=== PATIENT | male | born 1980 | race Caucasian/White ===

== ENCOUNTER 2023-12-01 18:55 | Emergency (ER) | payer OTHER, SELFPAY ==
[2023-12-01 19:16] VITALS: BP 129/75; PULSE 68; RESP 16; TEMP 36.6; O2SAT 97
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
== END 2023-12-01 19:36 | disposition home or self-care (01) ==
PROVIDERS: Emergency Provider Nurse Practitioner Family
DX: M54.9 Dorsalgia, unspecified (principal)
CPT/HCPCS: 99202; G0463

== ENCOUNTER 2024-01-19 18:57 | Emergency (ER) | payer OTHER, SELFPAY ==
--- NOTE | 2024-01-19 19:15 | ED.URI ---
HPI - URI/Sore Throat General Chief Complaint: Nausea/Vomiting/Diarrhea Stated Complaint: fever and vomiting Time Seen by Provider: 01/19/24 19:15 Source: patient, RN notes reviewed and old records reviewed Mode of arrival: ambulatory Limitations: no limitations History of Present Illness HPI Narrative: 44-year-old male to Express Care for complaint of subjective fever, excessive sweating, vomiting, dyspnea, decreased urination, weakness, absent appetite starting Wednesday evening and continuing through last night. Patient states that during that time he went over 24 hours without urinating. Patient states that his urine was very dark and that is just now starting to lighten up this evening. Patient reports that he was able to eat today for the 1st time in several days. Patient states that he has been drinking propel nonstop today in an effort to rehydrate. Patient reports that he did not come in sooner because he was not physically able to. Patient states that he smoked a lot of marijuana today in an effort to help control his nausea. Patient denies dizziness, weakness, fatigue, abdominal pain, nausea, vomiting, diarrhea, shortness of breath, difficulty swallowing. Patient tachycardic in triage. Patient resting comfortably in exam room in no acute distress. Respirations even and nonlabored. Patient able to speak in complete sentences without difficulty. Patient tolerating fluids by mouth. Related Data Home Medications Medication Instructions Recorded Confirmed buprenorphine 8 mg-naloxone 2 mg 1 film sublingual TID 12/01/23 01/19/24 sublingual film sertraline 100 mg tablet 200 mg PO DAILY 12/01/23 01/19/24 Allergies Allergy/AdvReac Type Severity Reaction Status Date / Time No Known Allergies Allergy Verified 01/19/24 19:21 Review of Systems Review of Systems: All systems reviewed & are unremarkable except as noted in HPI and below Constitutional: Constitutional: Reports as per HPI, Reports excessive sweating, Reports fatigue, Reports fever(s), Reports lethargy, Reports poor appetite, Reports weakness and Reports weight loss Comments: Patient reports that all of these symptoms resolved as of last night that he wanted to be seen as a precaution Eyes: Eyes: Reports no additional eye complaints ENT: Reports system reviewed and no additional complaints, except as documented Cardiovascular: Cardiovascular: Reports no additional cardiovascular complaints, Denies chest pain and Denies dyspnea Respiratory: Respiratory: Reports no additional respiratory complaints, Denies cough and Denies dyspnea Gastrointestinal: Gastrointestinal: Reports as per HPI, Reports diarrhea, Reports nausea and Reports vomiting Comments: Patient reports that all of these symptoms resolved as of last night that he wanted to be seen as a precaution Genitourinary: Genitourinary: Reports as per HPI and Reports oliguria Comments: Patient reports that this resolved as of today Musculoskeletal: Musculoskeletal: Reports no additional musculoskeletal complaints Neurologic: Reports system reviewed and no additional complaints, except as documented Psychiatric: Psychiatric: Reports no additional psychiatric complaints PMFSH Comments At the time of my signature, I reviewed and agree with the nursing past medical, surgical, social, and family history. There is no relevant family history pertinent to the patient complaint. Exam Const: General: cooperative, comfortable, no acute distress, well developed, alert, ill appearing acutely, tired appearing, well groomed and well nourished Nutritional Appearance: well nourished Orientation/consciousness: patient oriented x3 Limitations: no limitations HENMT: Head: normal to inspection Ears: external ears normal Face/Nose/Sinus: Normal external nose present, Normal nares present, normal facial exam, No erythema and No edema Face and sinus: normal facial exam, no erythema and no edema Mo
[2024-01-19 19:18] VITALS: BP 101/68; PULSE 116; RESP 18; TEMP 37.1; O2SAT 98
== END 2024-01-19 19:38 | disposition short-term general hospital (02) ==
LOC: EXPTROY 18:59
PROVIDERS: Emergency Provider Nurse Practitioner Family
DX: E86.0 Dehydration (principal)
CPT/HCPCS: 99212; 99213; G0463

== ENCOUNTER 2024-01-19 20:19 | Emergency (ER) | payer OTHER, SELFPAY ==
[2024-01-19 20:37] VITALS: BP 126/94; PULSE 96; RESP 15; TEMP 36.7; O2SAT 99
[2024-01-19 21:10] LABS: Basophils Absolute Auto 0.1 K/mm3 (0.0-0.1); Basophils Percent Auto 0.5 % (0.2-1.2); Eosinophils Absolute Auto 0.8 K/mm3 (0-0.3); Eosinophils Percent Auto 7.7 % (0-4.4); Hematocrit 45.6 % (42.0-52.0); Hemoglobin 15.2 g/dL (14.0-18.0); Immature Granulocyte Absolute 0.07 K/mm3 (0.00-0.031); Immature Granulocyte Percent A 0.7 % (0-0.5); Lymphocytes Absolute Auto 2.41 K/mm3 (0.9-3.2); Lymphocytes Percent Auto 23.6 % (18.3-44.2); Mean Corpuscular HGB Conc 33.3 g/dl (32-36); Mean Corpuscular Hemoglobin 30.2 pg (26-34); Mean Corpuscular Volume 90.5 fl (80-100); Monocytes Absolute Auto 0.5 K/mm3 (0.1-0.6); Monocytes Percent Auto 4.9 % (2.6-8.5); Neutrophils Absolute Auto 6.4 K/mm3 (1.3-6.7); Neutrophils Percent Auto 62.6 % (45.5-73.1); Platelet Count Result 327 k/mm3 (150-375); Red Blood Count 5.04 M/mm3 (4.6-6.20); Red Cell Distribution Width 14.7 % (11.5-14.5); White Blood Count 10.2 K/mm3 (4.5-10.0)
[2024-01-19 21:25] LABS: Alanine Aminotransferase 16 U/L (6-50); Albumin Level 4.2 g/dL (3.5-5.1); Alkaline Phosphatase 50 U/L (38-126); Anion Gap 8 mmol/L (4-12); Aspartate Amino Transferase 21 U/L (17-59); Bilirubin,Total 0.3 mg/dL (0.2-1.3); Blood Urea Nitrogen 17 mg/dL (9-20); Calcium 9.3 mg/dL (8.4-10.2); Carbon Dioxide 29 mmol/L (22-30); Chloride 102 mmol/L (98-107); Estimated CRCL calculation 110 ml/min; Estimated Glomerular Filt Rate > 60; Glucose 121 mg/dL (65-110); Lipase 144 U/L (23-300); Potassium 3.3 mmol/L (3.4-5.0); Sodium 139 mmol/L (137-145)
[2024-01-19] MEDS: SODIUM CHLORIDE 0.9% IV 1,000 ML 999 ML IV CONT ×2 (22:58)
[2024-01-19 23:23] LABS: Add Urine Microscopic? YES; Appearance Urine Clear (Clear); Bacteria Urine None Seen /hpf; Bilirubin Urine Negative (Negative); Blood Urine 3+ (Negative); Color Urine Yellow (Yellow); Glucose Urine UA Negative (Negative); Ketones Urine Negative (Negative); Leukocyte Esterase Ur Negative LEU/UL (Negative); Nitrate Urine Negative (Negative); Non Pathogenic Casts 0-2; Protein Urine Negative (Negative); RBC Urine 0-2 /hpf (0-2); Specific Grav Ur 1.021 (1.001-1.035); Squamous Epithelial Cell Urine None Seen /hpf (Few); WBC Urine 0-5 /hpf (0-3); pH Urine 5.5 (5.0-9.0)
[2024-01-19 23:45] LABS: Influenza A QL RT-PCR Negative (Negative); Influenza B QL RT-PCR Negative (Negative); RSV RNA, RT-PCR Negative (Negative); SARS-CoV-2 RNA PCR Negative (Negative)
--- NOTE | 2024-01-19 23:51 | ED.GENADULT ---
HPI - General Adult General Chief complaint: Nausea/Vomiting/Diarrhea Stated complaint: fever, N/v since wednesday Time Seen by Provider: 01/19/24 22:26 History of Present Illness HPI narrative: Patient is a 41-year-old gentleman presents emergency department with chief complaint of nausea vomiting diarrhea that started on Wednesday morning. Patient states he had symptoms for about 36 hours reports that he had multiple episodes of vomiting and multiple episodes of diarrhea patient states that went to urgent care and they recommended he come to the emergency department patient states he is now able take p.o. and reports his diarrhea. Patient denies abdominal pain. Related Data Home Medications Medication Instructions Recorded Confirmed buprenorphine 8 mg-naloxone 2 mg 1 film sublingual TID 12/01/23 01/19/24 sublingual film sertraline 100 mg tablet 200 mg PO DAILY 12/01/23 01/19/24 Allergies Allergy/AdvReac Type Severity Reaction Status Date / Time No Known Allergies Allergy Verified 01/19/24 20:21 Review of Systems Review of Systems: A 10 system review of systems was completed on the patient and is negative except for what is stated in the HPI. Nursing and ancillary documentation was reviewed. Exam Narrative: GENERAL: Well-appearing, well-nourished, and in no acute distress. HEAD: Normocephalic, atraumatic. EYES: PERRLA and EOMI. ENT: Nares clear, no rhinorrhea or epistaxis. Mucous membranes moist. NECK: Supple. CHEST: Clear to auscultation. No respiratory distress. HEART: Regular rate and rhythm. No murmur heard. Normal peripheral pulses. ABDOMEN: Soft, nontender, nondistended, normal active bowel sounds. EXTREMITIES: Normal range of motion. No edema. SKIN: Warm, dry, no rash. NEURO: No focal deficits. Alert and oriented x3. PSYCH: Normal mood and affect. Course Vital Signs Vital signs: Vital Signs Temperature 36.7 C 01/19/24 20:37 Pulse Rate 96 01/19/24 20:37 Respiratory Rate 15 01/19/24 20:37 Blood Pressure 126/94 H 01/19/24 20:37 Pulse Oximetry 99 01/19/24 20:37 Oxygen Delivery Room Air 01/19/24 20:37 Temperature 36.7 C 01/19/24 20:37 Pulse Rate 96 01/19/24 20:37 Respiratory Rate 15 01/19/24 20:37 Blood Pressure 126/94 H 01/19/24 20:37 Pulse Oximetry 99 01/19/24 20:37 Oxygen Delivery Room Air 01/19/24 20:37 Medical Decision Making MDM Narrative Medical decision making narrative: Differential diagnosis includes gastroenteritis, dehydration, viral illness Patient reports that he would like to be tested for COVID flu and RSV. Swab was obtained that tested negative. CBC and CMP were obtained as well as urinalysis that showed no significant abnormalities Patient received 2 L of normal saline boluses and is feeling much better and would like to go home. Vital Signs Vital Signs: Vital Signs Temperature 36.7 C 01/19/24 20:37 Pulse Rate 96 01/19/24 20:37 Respiratory Rate 15 01/19/24 20:37 Blood Pressure 126/94 H 01/19/24 20:37 Pulse Oximetry 99 01/19/24 20:37 Oxygen Delivery Room Air 01/19/24 20:37 Temperature 36.7 C 01/19/24 20:37 Pulse Rate 96 01/19/24 20:37 Respiratory Rate 15 01/19/24 20:37 Blood Pressure 126/94 H 01/19/24 20:37 Pulse Oximetry 99 01/19/24 20:37 Oxygen Delivery Room Air 01/19/24 20:37 Lab Data 01/19/24 20:58 01/19/24 20:58 Labs: Lab Results 01/19/24 01/19/24 01/19/24 Range/Units 20:58 23:00 23:01 WBC 10.2 H (4.5-10.0) K/mm3 RBC 5.04 (4.6-6.20) M/mm3 Hgb 15.2 (14.0-18.0) g/dL Hct 45.6 (42.0-52.0) % MCV 90.5 (80-100) fl MCH 30.2 (26-34) pg MCHC 33.3 (32-36) g/dl RDW 14.7 H (11.5-14.5) % Plt Count 327 (150-375) k/mm3 MPV 9.0 (7.4-10.4) fl Immature Gran % (Auto) 0.7 H (0-0.5) % Neut % (Auto) 62.6 (45.5-73.1) % Lymph % (Auto) 23.6 (18.3-44.2) % [place] % (Auto) 4.9
[2024-01-20 00:40] VITALS: BP 138/86; PULSE 76; RESP 15; O2SAT 99
== END 2024-01-20 00:42 | disposition home or self-care (01) ==
PROVIDERS: Emergency Provider Emergency Medicine
DX: K52.9 Noninfective gastroenteritis and colitis, unspecified (principal); Z20.822 Contact with and (suspected) exposure to COVID-19; F41.9 Anxiety disorder, unspecified; F32.A Depression, unspecified; Z79.899 Other long term (current) drug therapy
CPT/HCPCS: 36415; 80053; 81001; 83690; 85025; 87637; 96360; 99283; J7030

== ENCOUNTER 2024-08-28 08:34 | Emergency (ER) | payer OTHER, SELFPAY ==
--- NOTE | ~2024-08-28 | XR_ITS ---
EXAMINATION: XR chest 2V DATE: 08/28/2024 09:12 INDICATION: Shortness of breath, cough, wheezing and fever TECHNIQUE: PA and lateral views of the chest were obtained. COMPARISON: None FINDINGS: Left perihilar bronchial wall thickening. No focal airspace consolidation, pleural effusion or pneumo thorax. Calcified nodules in the left upper lung zone and calcified left hilar and mediastinal lymph nodes consistent with old granulomatous disease. The cardiomediastinal silhouette is normal. Visualiz ed bones and soft tissues are unremarkable. IMPRESSION: 1. Left perihilar bronchial wall thickening without focal airspace consolidation which could represen t bronchitis with differential including reactive airway disease/asthma. Reviewed, dictated and finalized at location A. IMPRESSION: 1. Left perihilar bronchial wall thickening without focal airspace consolidatio n which could represent bronchitis with differential including reactive airway disease/asthma.
--- OUTSIDE RECORDS SUMMARY | 2024-08-28 08:43 | XMS_ITS | Encounter Summary ---
Author Organization [facility] Address [address] [place] [id number] Care Team Providers Care Behavioral Health Tech Name Role Phone Jennifer Schulte MD Primary Care Provider [phone] Encounter Details Date Type Department Care Team (Late st Contact Info) Description 12/11/2010 Abstract [facility] Conversion Md, Generic Conversion, Social History Tobacco Use Types Packs/Day Years Used Date Smoking Tobacco: Never Assessed Sex and Gender Information Value Date Recorded Sex Assigned at Male 04/21/2021 3:41 PM [employer] Legal Sex Male 4:59 PM CDT Gender Identity Male 04/21/2021 3:41 PM [employer] Sexual Orientation Straight 04/21/2021 3: 41 PM [employer] documented as of this encounter Plan of Treatment Not on file documented as of this encounter Visit Diagnoses Not on filedocumented in this encounter Additional Health Concerns Infection Onset Date Last Indicated Resolved Time COVID-19 Rule Out 08/26/2019 08/26/2019 10/25/2019 12:32 AM CDT COVID-19 Rule Out 08/02/2022 08/02/2022 08/02/2022 8:41 PM CDT COVID-19 Confirmed 08/02/2022 08/02/2022 12:33 AM CDT COVID-19 Rule Out 07/07/2023 07/07/2023 07/07/2023 11:45 AM CDT documented as of this encounter Care Teams Behavioral Health Tech Relationship Specialty Start Date End Date Jennifer Schulte MD [address] [phone] PCP - General INTERNAL MEDICINE 10/04/18 documented as of this encounter
--- OUTSIDE RECORDS SUMMARY | 2024-08-28 08:43 | XMS_ITS | Clinical Summary ---
Author Organization [facility] Address [address] [place] [id number] Care Team Providers Care Central Supply Technician Name Role Phone Jennifer Schulte MD Primary Care Provider [phone] Allergies No known active allergies Medications sertraline 100 MG tablet Take 1 tablet (100 mg total) by mouth daily. 0 01/05/2019 Active hydrOXYzine 25 MG tablet Take 12.5-25 mg by mouth 2 (two) times daily as needed. 03/17/2021 Active buprenorphine-na loxone 8-2 MG FILM 09/23/2019 Active ARIPiprazole (ABILIFY) 5 MG tablet Take 1 tablet (5 mg total) by mouth daily. 06/12/2023 Active busPIRone (BUSPAR) 10 MG tablet Take 1 tablet (10 mg total) by mouth 2 (two) times daily. 05/06/2023 Active propranolol (INDERAL) 10 MG tablet TAKE 1 TABLET BY MOUTH ONCE DAILY NEEDED FOR 20 DAYS 01/14/2023 Active tadalafil (CIALIS) 10 MG tablet TAKE 1 TABLET BY MOUTH NEEDED AN HOUR BEFORE SEX. DO NOT TAKE MORE THAN 1 TABLET IN 48 HOURS. THIS IS NOT DAILY MEDICINE. 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 NSTEMI (non-ST elevated myoc ardial infarction) ([facility]) 11/23/2018 Immunizations Immunization Administration Dates Next Due Influenza Adult (Generic) 02/07/2019,12/31/2010 Tdap (Adacel) 01/12/2019 Tdap (Boostrix) 01/12/2019 Family History Medical History Relation Comments Diabetes Father Cancer Mother Relation Status Comments Father Maternal Grandfather Maternal Grandmother Mother Paternal Grandfather Paternal Grandmother Social History Tobacco Use Types Packs/Day Years Used Date Smoking Tobacco: Every Day Cigarettes Smokeless Tobacco: Never Tobacco Cessation:Ready to Q uit: No; Counseling Given: No 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 Alcohol Use Standard Drinks/Week Comments No 0 (1 standard drink = 0.6 oz pur e alcohol) AUDIT-C Answer Date Recorded Frequency of Alcohol Consumption Never 10/04/2018 Average Number of Drinks Not on file 019 Frequency of Binge Drinking Not on file 09/17 PHQ-2 Answer Date Recorded Patient Health Questionnaire-2 Score 0 07/07/2023 Sex and Gender Information Value Date Recorded Sex Assigned at Male 04/21/2021 3:41 PM [employer] Sex Male 4:59 PM CDT Gender Identity Male 04/21/2021 3:41 PM [employer] Sexual Orientation Straight 04/21/2021 3: 41 PM [employer] Last Filed Vital Signs Vital Sign Reading Time Taken Comments Blood Pressure 110/76 07/07/2023 11:13 AM CDT Pulse 94 07/07/2023 11:13 AM CDT Temperature 37.2 C (98.9 F) 07/07/2023 11:13 AM CDT Respiratory Rate 18 07/07/2023 11:13 AM CDT Oxygen Saturation 95% 07/07/2023 11:13 AM CDT Inhaled Oxygen Concentration - - Weight 91.8 kg (202 lb 6 oz) 07/07/2023 11:13 AM CDT Height 180.3 cm (5' 11 ) 07/07/2023 11:13 AM CDT Body Mass Index 28.23 07/07/2023 11:13 AM CDT Plan of Treatment Health Maintenance Due Date Last Done Comments ASCVD Statin 1981 Annual Physical 01/04/1984 Hepatitis C 1999 Hepatitis B Vaccines (1 of 3 - 19+ 3-dose series) 01/04/2000 Pneumococcal Vaccine: Pediatrics (0 to 5 Years) and At-Risk Patients (6 to 49 Years) (1 of 2 - PCV) 01/04/2000 ASCVD LDL 11/25/2019 11/24/2018 COVID-19 Vaccine (2023-2 5 season) 2023 PHQ-2 (Physician [place]) 04/19/2024 07/07/2023 DTaP, Tdap and Td Vaccines ( 3 - Td or Tdap) 01/12/2029 01/12/2019, 01/12/2019 HPV Vaccines Aged Out No longer eligi ble based on patient's age to complete this topic Meningococcal B Vaccine Aged Out No l onger eligible based on patient's age to complete this topic Meningococcal Vaccine Aged Out No irais jesi eligible based on patient's age to complete this topic RSV Immunizations Under 20 Months Aged Out No longer eligible b ased on patient's age to complete this topic Procedures Procedure Name Priority Date/Time Associated Diagnosis Comments LIPID PANEL Routine 11/24/2018 5:03 AM CDT from Last 3 Months or Most Recently Relevant to Health Maintenance Results * (ABNORMAL) LIPID PANEL (11/24/2018 5:03 AM CDT) CHOLESTEROL 127 <200 MG/DL 11/24/2018 6:00 AM T [facility] TRIGLYCERIDES 80 <150 MG/DL 11/24/2018 6:00 AM T [facility] HDL 20(L) >40.0 MG/DL 11/24/2018 6:00 AM T [facility] LDL (CALCULATED) 91 <100 MG/DL 11/24/2018 6:00 AM T [facility] NON HDL CHOLESTEROL 107 <130 MG/DL 11/24/2018 6:00 AM T [facility] Comment: NOTE: WHEN THE TRIGLYCERIDES ARE >200 mg/dL, NON HDL C IS A SECONDARY TARGET OF THERAPY, WITH A GOAL 30 mg/dL HIGHER THAN THE IDENTIFIED LDL C GOAL. CHOL/HDL RATIO 6.4(H) 0.0 - 4.5 11/24/2018 6:00 AM T [facility] VLDL CALCULATION 16 5 - 55 MG/DL 11/24/2018 6:[address] [facility] LIPID INTERPRETATION 11/24/2018 6:00 AM T [facility] Comment: [facility] CONCENSUS REPORT RECOMMENDATIONS: ADULT CHILD LOW RISK: CHOLESTEROL <200 <170 TRIGLYCERIDE <150 --- HDL >=60 --- LDL <100 <110 BORDERLINE: CHOLESTEROL 200-239 170-199 TRIGLYCERIDE 150-199 --- HDL 40-59 --- LDL 100-159 110-129 HIGH RISK: CHOLESTEROL >=240 >=200 TRIGLYCERIDE >=200 --- HDL <40 --- LDL >=160 >=130 11/24/2018 5:03 AM CDT us Krissy Escamilla MD LABORATORY Final Re sult [facility] [address] [place] [address], from Last 3 Months or Most Recently Relevant to Health Maintenance Insurance [employer] Advance Directives * Full Code (Latest Code Status on File) Date Activated Date Inactivated Comments 11/23/2018 8:24 PM 11/26/2018 2:02 PM Care Teams Central Supply Technician Relationship Specialty Start Date End Date Jennifer Schulte MD [address] [phone] PCP - General INTERNAL MEDICINE 10/04/18
--- NOTE | 2024-08-28 08:53 | ED.URI ---
HPI - URI/Sore Throat General Chief Complaint: Upper Respiratory Infection Stated Complaint: chest cold/congestion Time Seen by Provider: 08/28/24 09:00 Source: patient Mode of arrival: ambulatory Limitations: no limitations History of Present Illness HPI Narrative: Ramírez is a 44-year-old male patient presenting to the clinic today with complaints of nasal congestion, dry cough, shortness of breath on exertion, and chest congestion x3 days. He reports his symptoms started on Wednesday night. He is a smoker. States he feels as though his lungs are on fire when he takes a deep breath. Oxygen saturations 95% on room air. Is able to speak in full sentences. No history of asthma or COPD. Related Data Home Medications ?Medication ?Instructions ?Recorded ?Confirmed ?Last Taken ?Type buprenorphine 8 mg-naloxone 2 mg 1 film sublingual TID 12/01/23 08/28/24 Unknown History sublingual film sertraline 100 mg tablet 200 mg PO DAILY 12/01/23 08/28/24 Unknown History buprenorphine 300 mg/1.5 mL mg subcut 08/28/24 Unknown History solution,exten.rel.subcutaneous syringe (Sublocade) Allergies Allergy/AdvReac Type Severity Reaction Status Date / Time No Known Allergies Allergy Verified 08/28/24 08:48 Review of Systems Review of Systems: Pertinent positives per HPI. Patient denies any fever, chills, rash, headache, visual changes, dizziness, runny nose, sore throat, chest pain, palpitations, nausea, vomiting, diarrhea, constipation, abdominal pain, or any urinary issues. PMFSH Comments At the time of my signature, I reviewed and agree with the nursing past medical, surgical, social, and family history. There is no relevant family history pertinent to the patient complaint. Exam Narrative: General: Well-developed, well nourished, in no apparent distress Head: Normocephalic, atraumatic Eyes: Pupils equally round and reactive to light bilaterally, EOM intact, sclera and conjunctive clear, no discharge, lids normal Ears: TMs intact and clear, ear canals clear, no drainage, grossly hearing normal. Nose: Nares patent, clear nasal discharge, no inflammation, no sinus tenderness. Mouth: Oropharynx without lesions or masses, good dentition, MMM. Postnasal drip Neck: Supple, trachea midline, no enlargement of anterior or posterior cervical nodes, no thyroid masses or goiter palpable. Cardio: Regular rate and rhythm, s1 and s2 normal, no murmur appreciated. Resp: Lung sounds tight with inspiratory and expiratory wheezing throughout lung medrano, no rhonchi, rales, or rubs Course Course Emergency Course: Portions of this record may have been created with voice recognition software. Level of Care: Express Care Visit Vital Signs Vital signs: Vital Signs Temperature 35.9 C L 08/28/24 08:57 Pulse Rate 90 08/28/24 08:57 Respiratory Rate 16 08/28/24 08:57 Blood Pressure 109/66 08/28/24 08:57 Pulse Oximetry 95 08/28/24 08:57 Oxygen Delivery Room Air 08/28/24 08:57 Temperature 35.9 C L 08/28/24 08:57 Pulse Rate 90 08/28/24 09:07 Respiratory Rate 18 08/28/24 09:07 Blood Pressure 109/66 08/28/24 08:57 Pulse Oximetry 95 08/28/24 09:07 Oxygen Delivery Room Air 08/28/24 08:57 Vital signs reviewed MDM - URI/Sore Throat MDM Narrative Medical decision making narrative: At the time of visit patient is resting comfortably on the exam table. Patient appears to be nontoxic. Labs: COVID testing was performed and negative in the clinic today. Diagnostics: Chest x-ray was performed shows likely bronchitis/reactive airway disease. No sign of pneumonia Medications: DuoNeb hand-held neb treatment given in the clinic today. This improved lung sounds and patient feels as though he can take a deeper breath Plan: I suspect patient has bronchitis. Prescription for albuterol inhaler and prednisone was sent to pharmacy. Supportive measures were discussed with the patient and they voiced understanding discharge instructions and agrees to treatment plan. Return precautions reviewed Differential Diagnosis Differential diagnosis: Likely upper respiratory infection, otitis media, sinusitis, viral infection, bronchitis, influenza, pharyngitis and other (COVID) Lab Data Labs: Lab Results 08/28/24 Range/Units 09:12 POC SARS CoV-2 Ag Negative (Negative) Imaging Data Radiologist's impression: ITS Impressions Chest X-Ray 08/28/24 09:16 IMPRESSION: 1. Left perihilar bronchial wall thickening without focal airspace consolidation which could represent bronchitis with differential including reactive airway disease/asthma. Discharge Plan Discharge Clinical Impression: Bronchitis Patient Disposition: Home Condition: Stable Instructions: Antibiotic Form, Acute Bronchitis (ED) Additional Instructions: COVID testing is negative in the clinic today. Chest x-ray shows bronchitis. No sign of pneumonia. Take prescription medications only as prescribed-prednisone and albuterol inhaler Increase fluids and stay well hydrated Tylenol/motrin for pain/fever Flonase and OTC antihistamines as directed Vicks vapor rub to open sinuses Sinus rinses for congestion Cepacol spray, cough drops, throat lozenges, warm tea with honey/lemon, gargle salt water to soothe throat BRAT diet for diarrhea Clear liquids x 24 hours then advance as tolerated for nausea/vomiting Go to the ED if you develop a worsening in your condition- high fever not controlled by Tylenol or Motrin, dehydration, weakness, lethargy, shortness of breath, or chest pain. Follow up with your PCP in 3-5 days if symptoms persist. Patient Language: Telugu Prescriptions: New prednisone 20 mg tablet 40 mg PO DAILY 5 Days Qty: 10 0RF albuterol sulfate 90 mcg/actuation HFA aerosol inhaler 2 puff inhalation Q4-6H PRN (Reason: shortness of breath or wheezing) 30 Days Qty: 8.5 0RF No Action Sublocade 300 mg/1.5 mL solution, extended rel syringe SUBCUT sertraline 100 mg tablet 200 mg PO DAILY buprenorphine-naloxone 8-2 mg film 1 film sublingual TID Follow-up/Referrals: PHYSICIAN,RIPENING ROOM ATTENDANT [Primary Care Provider] - Time of Disposition: 09:22 Quality NIHSS Nursing Documentation ED NIHSS nursing documentation: reviewed/agree
[2024-08-28 08:57] VITALS: BP 109/66; PULSE 90; RESP 16; TEMP 35.9; O2SAT 95
[2024-08-28 09:07] VITALS: PULSE 90; RESP 18; O2SAT 95
[2024-08-28] MEDS: IPRATROPIUM 0.5 MG/ALBUTEROL SULFATE 2.5 MG AMPUL.NEB 3 ML INHALATION (09:12)
[2024-08-28 09:14] LABS: EDCOVIDSCREEN Negative (Negative)
[2024-08-28 09:28] VITALS: PULSE 98; RESP 20; O2SAT 97
== END 2024-08-28 09:29 | disposition home or self-care (01) ==
PROVIDERS: Emergency Provider Nurse Practitioner Family; Referring Provider Emergency Medicine
DX: J40 Bronchitis, not specified as acute or chronic (principal); Z20.822 Contact with and (suspected) exposure to COVID-19
CPT/HCPCS: 71046; 87426; 99213; G0463

== ENCOUNTER 2024-12-04 18:01 | Emergency (ER) | payer OTHER, SELFPAY ==
--- OUTSIDE RECORDS SUMMARY | 2024-12-04 18:04 | XMS_ITS ---
Author Organization [facility] Address [address] [place] [address] Care Team Providers Care Printed Circuit Board Panels Trimmer Name Role Phone Julia Murillo Primary Care Provider Brendan Prather [phone] REASON FOR VISIT New Patient Psych Eval Encounters Encounter Location Date Provider Diagnosis [address] [place] [address] 09/22/2024 Brendan Prather Plan Of Treatment No Information Progress Notes * Margarito VALDEZod RDOB: [birth year] (44 yo M)Acc No.[id number]:09/22/2024 UNLOCKED PROGRESS NOTE Patient: Israel SIMMS Provider: Jovan Prather APN :1980 A ge:44 Y S ex:Male Date:09/22/2024 Address:[address] [place] [id number] Pcp:Julia Murillo Subjective: * Chief Complaints: * 1 . New Patient Psych Eval. * Medical History: Objective: * Vitals: Assessment: Plan: * Treatment: * * Electronic signature of Brendan Prather on 12/04/2024 at 06:04 PM CDT Sign off status: Pending * Provider: Jovan Prather APN Date: 09/22/2024 Generated for Printi ng/Faxing/eTransmitting on: 12/04/2024 06:04 PM CDT
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
--- OUTSIDE RECORDS SUMMARY | 2024-12-04 18:04 | XMS_ITS | Encounter Summary ---
Author Organization [facility] Address [address] [place] [address] Care Team Providers Care Bisque Brusher Name Role Phone Jennifer Schulte MD Primary Care Provider [phone] Encounter Details Date Type Department Care Team (Late st Contact Info) Description 12/11/2010 Abstract [facility] Conversion Md, Generic Conversion, Social History Tobacco Use Types Packs/Day Years Used Date Smoking Tobacco: Never Assessed Sex and Gender Information Value Date Recorded Sex Assigned at Male 04/21/2021 3:41 PM LATHE SETUP OPERATOR Legal Sex Male 4:59 PM CDT Gender Identity Male 04/21/2021 3:41 PM LATHE SETUP OPERATOR Sexual Orientation Straight 04/21/2021 3: 41 PM LATHE SETUP OPERATOR documented as of this encounter Plan of [...] documented as of this encounter Care Teams Bisque Brusher Relationship Specialty Start Date End Date Jennifer Schulte MD [address] [phone] PCP - General INTERNAL MEDICINE 10/04/18 documented as of this encounter
--- OUTSIDE RECORDS SUMMARY | 2024-12-04 18:04 | XMS_ITS | Clinical Summary ---
Author Organization [facility] Address [address] [place] [address] Care Team Providers Care Concrete Grinder Operator Name Role Phone Jennifer Schulte MD Primary Care Provider [phone] Allergies No known active allergies Medications sertraline [...] Noted Date Diagnosed Date Drug withdrawal delirium ([facility]) 11/24 NSTEMI (non-ST elevated myoc ardial infarction) ([facility]) 11/23/2018 Immunizations Immunization Administration Dates Next Due [...] uit: No; Counseling Given: No Comments:PCP to counseling services manager Alcohol Use Standard Drinks/Week Comments No 0 [...] Sex Assigned at Male 04/21/2021 3:41 PM CONCRETE MIXER Legal Sex Male 4:59 PM CDT Gender Identity Male 04/21/2021 3:41 PM CONCRETE MIXER Sexual Orientation Straight 04/21/2021 3: 41 PM CONCRETE MIXER Last Filed Vital Signs Vital Sign Reading [...] 11:13 AM CDT Height 180.3 cm (5' 11) 07/07/2023 11:13 AM CDT Body Mass Index 28.23 07/07/2023 11:13 AM CDT Plan of Treatment Health Maintenance Due Date Last Done Comments ASCVD Statin 1980 Annual Physical 01/04/1984 Hepatitis C 1999 Hepatitis B Vaccines (1 of 3 - 19+ 3-dose series) 01/04/2000 Pneumococcal Vaccine: Pediatrics (0 to 5 Years) and At-Risk Patients (6 to 49 Years) (1 of 2 - PCV) 01/04/2000 HPV Vaccines (1 - 3-dose SCD M series) 01/04/2008 ASCVD LDL 11/25/2019 11/24/2018 COVID-19 Vaccine (2023-2 5 season) 2023 PHQ-2 (Physician Mcgregor) 04/19/2024 07/07/2023 DTaP, Tdap and Td Vaccines ( 3 - Td or Tdap) 01/12/2029 01/12/2019, 01/12/2019 Meningococcal B Vaccine Aged Out No l [...] 127 <200 MG/DL 11/24/2018 6:00 AM T [facility] TRIGLYCERIDES 80 <150 MG/DL 11/24/2018 6:00 AM T [facility] HDL 20(L) >40.0 MG/DL 11/24/2018 6:00 AM T [facility] LDL (CALCULATED) 91 <100 MG/DL 11/24/2018 6:00 AM T [facility] NON HDL CHOLESTEROL 107 <130 MG/DL 11/24/2018 6:00 AM T [facility] Comment: NOTE: WHEN THE TRIGLYCERIDES ARE >200 mg/dL, NON HDL C IS A SECONDARY TARGET OF THERAPY, WITH A GOAL 30 mg/dL HIGHER THAN THE IDENTIFIED LDL C GOAL. CHOL/HDL RATIO 6.4(H) 0.0 - 4.5 11/24/2018 6:00 AM T [facility] VLDL CALCULATION 16 5 - 55 MG/DL 11/24/2018 6:00 AM [facility] LIPID INTERPRETATION 11/24/2018 6:00 AM T [facility] Comment: NIH CONCENSUS REPORT RECOMMENDATIONS: ADULT CHILD LOW RISK: CHOLESTEROL <200 <170 TRIGLYCERIDE <150 --- HDL >=60 --- LDL <100 <110 BORDERLINE: CHOLESTEROL 200-239 170-199 TRIGLYCERIDE 150-199 --- HDL 40-59 --- LDL 100-159 110-129 HIGH RISK: CHOLESTEROL >=240 >=200 TRIGLYCERIDE >=200 --- HDL <40 --- LDL >=160 >=130 11/24/2018 5:03 AM CDT Krissy Escamilla MD LABORATORY Final Re sult [facility] [address] [place] [address], from Last 3 Months or Most Recently Relevant to Health Maintenance Insurance [employer] Advance Directives * Full Code (Latest Code Status on File) Date Activated Date Inactivated Comments 11/23/2018 8:24 PM 11/26/2018 2:02 PM Care Teams Concrete Grinder Operator Relationship Specialty Start Date End Date Jennifer Schulte MD [address] [address] PCP - General INTERNAL MEDICINE 10/04/18
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
--- OUTSIDE RECORDS SUMMARY | 2024-12-04 19:11 | XMS_ITS | Clinical Summary ---
Author Organization [facility] Address [address] [place] [address] Care Team Providers Care Clay Pigeon Setter Name Role Phone Jennifer Schulte MD Primary Care Provider [phone] Allergies No known active allergies Medications sertraline [...] Noted Date Diagnosed Date Drug withdrawal delirium ([facility]) 11/24 NSTEMI (non-ST elevated myoc ardial infarction) ([facility]) 11/23/2018 Immunizations Immunization Administration [...] uit: No; Counseling Given: No Comments:PCP to weight loss counselor Alcohol Use Standard Drinks/Week Comments No [...] Sex Assigned at Male 04/21/2021 3:41 PM ROLLER PRESSER OPERATOR Legal Sex Male 4:59 PM CDT Gender Identity Male 04/21/2021 3:41 PM ROLLER PRESSER OPERATOR Sexual Orientation Straight 04/21/2021 3: 41 PM ROLLER PRESSER OPERATOR Last Filed Vital Signs Vital Sign Reading [...] Vaccine (2023-2 5 season) 2023 PHQ-2 (Physician [place]) 04/19/2024 07/07/2023 DTaP, Tdap and Td Vaccines [...] 127 <200 MG/DL 11/24/2018 6:00 AM T [facility] TRIGLYCERIDES 80 <150 MG/DL 11/24/2018 6:00 AM T [facility] HDL 20(L) >40.0 MG/DL 11/24/2018 6:00 AM T [facility] LDL (CALCULATED) 91 <100 MG/DL 11/24/2018 6:00 AM T [facility] NON HDL CHOLESTEROL 107 <130 MG/DL 11/24/2018 6:00 AM T [facility] Comment: NOTE: WHEN THE TRIGLYCERIDES ARE >200 mg/dL, NON HDL C IS A SECONDARY TARGET OF THERAPY, WITH A GOAL 30 mg/dL HIGHER THAN THE IDENTIFIED LDL C GOAL. CHOL/HDL RATIO 6.4(H) 0.0 - 4.5 11/24/2018 6:00 AM T [facility] VLDL CALCULATION 16 5 - 55 MG/DL 11/24/2018 6:00 AM [facility] LIPID INTERPRETATION 11/24/2018 6:00 AM T [facility] Comment: NIH CONCENSUS REPORT RECOMMENDATIONS: ADULT CHILD LOW RISK: CHOLESTEROL <200 <170 TRIGLYCERIDE <150 --- HDL >=60 --- LDL <100 <110 BORDERLINE: CHOLESTEROL 200-239 170-199 TRIGLYCERIDE 150-199 --- HDL 40-59 --- LDL 100-159 110-129 HIGH RISK: CHOLESTEROL >=240 >=200 TRIGLYCERIDE >=200 --- HDL <40 --- LDL >=160 >=130 11/24/2018 5:03 AM CDT Krissy Escamilla MD LABORATORY Final Re sult [facility] [address] [place] [address], from Last 3 Months or Most Recently Relevant to Health Maintenance Insurance AET[employer] Advance Directives * Full Code (Latest Code Status on File) Date Activated Date Inactivated Comments 11/23/2018 8:24 PM 11/26/2018 2:02 PM Care Teams Clay Pigeon Setter Relationship Specialty Start Date End Date Jennifer Schulte MD [address] [phone] PCP - General INTERNAL MEDICINE 10/04/18
--- OUTSIDE RECORDS SUMMARY | 2024-12-04 19:11 | XMS_ITS | Encounter Summary ---
Author Organization [facility] Address [address] [place] [address] Care Team Providers Care Dredgemaster Name Role Phone Jennifer Schulte MD Primary Care Provider [phone] Encounter Details Date Type Department Care Team (Late st Contact Info) Description 12/11/2010 Abstract [facility] Conversion Md, Generic Conversion, Social History Tobacco Use Types Packs/Day Years Used Date Smoking Tobacco: Never Assessed Sex and Gender Information Value Date Recorded Sex Assigned at Male 04/21/2021 3:41 PM CONCIERGE MANAGER Legal Sex Male 4:59 PM CDT Gender Identity Male 04/21/2021 3:41 PM CONCIERGE MANAGER Sexual Orientation Straight 04/21/2021 3: 41 PM CONCIERGE MANAGER documented as of this encounter Plan of [...] documented as of this encounter Care Teams Dredgemaster Relationship Specialty Start Date End Date Jennifer Schulte MD [address] [phone] PCP - General INTERNAL MEDICINE 10/04/18 documented as of this encounter
[2024-12-04 19:15] VITALS: BP 113/73; PULSE 81; RESP 18; TEMP 36.2; O2SAT 99
--- NOTE | 2024-12-04 20:18 | ED.HA ---
HPI - Headache General Chief Complaint: Headache Stated Complaint: Headache Time Seen by Provider: 12/04/24 19:44 Source: patient and RN notes reviewed Mode of arrival: ambulatory Limitations: no limitations History of Present Illness HPI Narrative: Patient initially came to [facility] a few hours prior to his exam, but left to go to the ER. Was triaged in the ER, left the urine came back to [facility]. Patient complains of mostly frontal headache occasionally over the last 4-6 months, more frequently over the last 2 months, now complains that it is every other day. Also complains that he has some photophobia and occasional nausea. Currently rates his pain 6/10 and has tried Tylenol and ibuprofen with mild relief. Patient would like a note for work as he has been off for the past 4 days. He is also requesting a referral to see Neurology. He does not currently have a PCP since moving to the area. Patient also has history of narcotic abuse and currently gets monthly Sublocade injections to help with this. Has been on these injections for the last 6 months. Related Data Home Medications ?Medication ?Instructions ?Recorded ?Confirmed ?Last Taken ?Type buprenorphine 8 mg-naloxone 2 mg 1 film sublingual TID 12/01/23 12/04/24 Unknown History sublingual film sertraline 100 mg tablet 200 mg PO DAILY 12/01/23 12/04/24 Unknown History buprenorphine 300 mg/1.5 mL mg subcut 08/28/24 Unknown History solution,exten.rel.subcutaneous syringe (Sublocade) Allergies Allergy/AdvReac Type Severity Reaction Status Date / Time No Known Allergies Allergy Verified 12/04/24 19:16 PMFSH Comments At time of signature, I have reviewed and agree with nursing past medical, surgical, social and family history unless otherwise noted. Please see nursing chart for further information. There is no relevant family history pertinent to the presenting complaint Exam Narrative: GENERAL: Well-appearing, well-nourished, and in no acute distress. HEAD: Normocephalic, atraumatic. EYES: EOMI. PERRL. No redness or drainage. Conjunctivae normal. Wearing glasses due to photophobia. ENT: Mucous membranes pink and moist. Nares clear. No rhinorrhea. NECK: Normal AROM. CHEST: No respiratory distress. Clear to auscultation. HEART: Regular rate and rhythm. No murmur appreciated. EXTREMITIES: Normal range of motion. No edema. SKIN: Warm, dry, no rash. Capillary refill normal. Normal skin turgor. NEURO: No focal deficits. Alert and oriented x3. Gait steady. Hand parking station attendant equal and strong. 5/5 strength in BLE. PSYCH: Normal affect. No signs of depression or anxiety. Course Course Level of Care: [facility] Vital Signs Vital signs: Vital Signs Temperature 97.1 F L 12/04/24 19:15 Pulse Rate 81 12/04/24 19:15 Respiratory Rate 18 12/04/24 19:15 Blood Pressure 113/73 12/04/24 19:15 Pulse Oximetry 99 12/04/24 19:15 Oxygen Delivery Room Air 12/04/24 19:15 Temperature 97.1 F L 12/04/24 19:15 Pulse Rate 81 12/04/24 19:15 Respiratory Rate 18 12/04/24 19:15 Blood Pressure 113/73 12/04/24 19:15 Pulse Oximetry 99 12/04/24 19:15 Oxygen Delivery Room Air 12/04/24 19:15 Reviewed MDM - Headache MDM Narrative Medical decision making narrative: 44-year-old male patient presents today with 4-6 month history of frontal headache that has become more frequent in nature and now includes some photophobia and occasional nausea. He has tried some ypmu-bvd-mdtfwno medication which read some mild relief and currently rates his pain 6/10 today. Upon exam, patient is wearing glasses due to photophobia. Exam is otherwise negative. He no longer has a PCP you since moving to the area and is requesting a referral to Neurology. Discussed that urgent care does not provide referrals. Will give phone number to physician liaison line to help him find a PCP so he can initiate care there first. Patient agrees with this plan. Will also provide him with a short burst of prednisone which should help with his headache. Patient requesting a note for work as he has been off for several days. Will provide this as well. Vital signs stable. Differential Diagnosis Differential diagnosis: Likely migraine, tension headache, subarachnoid hemorrhage and headache Critical Care Time Critical Care Time Critical Care Time: No Discharge Plan Discharge Clinical Impression: Headache Qualifiers: Headache type: unspecified Headache chronicity pattern: chronic headache Intractability: not intractable Qualified Code(s): R51.9 - Headache, unspecified Patient Disposition: Home Condition: Stable Instructions: Acute Headache (DC) Additional Instructions: Please take the prednisone as directed. Continue the ibuprofen and Tylenol at home if needed as well. As discussed, please make an appointment to initiate care with a new PCP. If you would like, you may call the physician liaison hotline at [facility] at [phone] and they can help you. Patient Language: Greenlandic Prescriptions: New prednisone 20 mg tablet 40 mg PO DAILY 5 Days Qty: 10 0RF No Action Sublocade 300 mg/1.5 mL solution, extended rel syringe SUBCUT albuterol sulfate 90 mcg/actuation HFA aerosol inhaler 2 puff inhalation Q4-6H PRN (Reason: shortness of breath or wheezing) 30 Days Qty: 8.5 0RF sertraline 100 mg tablet 200 mg PO DAILY buprenorphine-naloxone 8-2 mg film 1 film sublingual TID Follow-up/Referrals: PHYSICIAN,PRINTING ASSISTANT [Primary Care Provider] - Stand Alone Forms: Work/School Release IP Time of Disposition: 19:59
== END 2024-12-04 20:01 | disposition home or self-care (01) ==
PROVIDERS: Emergency Provider Nurse Practitioner
DX: R51.9 Headache, unspecified (principal); F19.10 Other psychoactive substance abuse, uncomplicated
CPT/HCPCS: 99213; G0463

== ENCOUNTER 2024-12-04 18:39 | Emergency (ER) | payer OTHER, SELFPAY ==
[2024-12-04 18:40] VITALS: BP 147/89; PULSE 86; RESP 14; TEMP 36.4; O2SAT 99
--- OUTSIDE RECORDS SUMMARY | 2024-12-04 18:41 | XMS_ITS | Encounter Summary ---
Author Organization [facility] Address [address] [place] [address] Care Team Providers Care Supervisor Cured Meats Name Role Phone Jenniefr Schulte MD Primary Care Provider [phone] Encounter Details Date Type Department Care Team (Late st Contact Info) Description 12/11/2010 Abstract [facility] Conversion Md, Generic Conversion, Social History Tobacco Use Types Packs/Day Years Used Date Smoking Tobacco: Never Assessed Sex and Gender Information Value Date Recorded Sex Assigned at Male 04/21/2021 3:41 PM INVENTORY TAKER Legal Sex Male 4:59 PM CDT Gender Identity Male 04/21/2021 3:41 PM INVENTORY TAKER Sexual Orientation Straight 04/21/2021 3: 41 PM INVENTORY TAKER documented as of this encounter Plan of [...] documented as of this encounter Care Teams Supervisor Cured Meats Relationship Specialty Start Date End Date Jennifer Schulte MD [address] [phone] PCP - General INTERNAL MEDICINE 10/04/18 documented as of this encounter
--- OUTSIDE RECORDS SUMMARY | 2024-12-04 18:41 | XMS_ITS | Clinical Summary ---
Author Organization [facility] Address [address] [place] [address] Care Team Providers Care Gas Appliance Repairer Name Role Phone Jennifer Schulte MD Primary Care Provider [phone] Allergies No known active allergies Medications sertraline [...] Noted Date Diagnosed Date Drug withdrawal delirium ([facility]) 11/24 NSTEMI (non-ST elevated myoc ardial infarction) ([facility]) 11/23/2018 Immunizations Immunization Administration Dates [...] uit: No; Counseling Given: No Comments:PCP to pet counselor Alcohol Use Standard Drinks/Week Comments No [...] Sex Assigned at Male 04/21/2021 3:41 PM CABLE FORMER Legal Sex Male 4:59 PM CDT Gender Identity Male 04/21/2021 3:41 PM CABLE FORMER Sexual Orientation Straight 04/21/2021 3: 41 PM CABLE FORMER Last Filed Vital Signs Vital Sign Reading [...] Vaccine (2023-2 5 season) 2023 PHQ-2 (Physician [place]) 04/19/2024 07/07/2023 DTaP, Tdap and Td Vaccines [...] 127 <200 MG/DL 11/24/2018 6:00 AM T [facility] TRIGLYCERIDES 80 <150 MG/DL 11/24/2018 6:00 AM T [facility] HDL 20(L) >40.0 MG/DL 11/24/2018 6:00 AM T [facility] LDL (CALCULATED) 91 <100 MG/DL 11/24/2018 6:00 AM T [facility] NON HDL CHOLESTEROL 107 <130 MG/DL 11/24/2018 6:00 AM T [facility] Comment: NOTE: WHEN THE TRIGLYCERIDES ARE >200 mg/dL, NON HDL C IS A SECONDARY TARGET OF THERAPY, WITH A GOAL 30 mg/dL HIGHER THAN THE IDENTIFIED LDL C GOAL. CHOL/HDL RATIO 6.4(H) 0.0 - 4.5 11/24/2018 6:00 AM T [facility] VLDL CALCULATION 16 5 - 55 MG/DL 11/24/2018 6:00 AM [facility] LIPID INTERPRETATION 11/24/2018 6:00 AM T [facility] Comment: NIH CONCENSUS REPORT RECOMMENDATIONS: ADULT CHILD LOW RISK: CHOLESTEROL <200 <170 TRIGLYCERIDE <150 --- HDL >=60 --- LDL <100 <110 BORDERLINE: CHOLESTEROL 200-239 170-199 TRIGLYCERIDE 150-199 --- HDL 40-59 --- LDL 100-159 110-129 HIGH RISK: CHOLESTEROL >=240 >=200 TRIGLYCERIDE >=200 --- HDL <40 --- LDL >=160 >=130 11/24/2018 5:03 AM CDT Krissy Escamilla MD LABORATORY Final Re sult [facility] [address] [place] [address], from Last 3 Months or Most Recently Relevant to Health Maintenance Insurance AET[employer] Advance Directives * Full Code (Latest Code Status on File) Date Activated Date Inactivated Comments 11/23/2018 8:24 PM 11/26/2018 2:02 PM Care Teams Gas Appliance Repairer Relationship Specialty Start Date End Date Jennifer Schulte MD [address] [phone] PCP - General INTERNAL MEDICINE 10/04/18
--- NOTE | 2024-12-04 22:57 | PC.NURSE ---
Pt called x1 for room assignment w no response.
--- NOTE | 2024-12-04 23:45 | PC.NURSE ---
Called x2 for room assignment with no response. Marked as LWBSn on tracker.
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
--- OUTSIDE RECORDS SUMMARY | 2024-12-04 23:51 | XMS_ITS | Clinical Summary ---
Author Organization [facility] Address [address] [place] [address] Care Team Providers Care Canvas Baster Jumpbasting Name Role Phone Jennifer Schulte MD Primary Care Provider [phone] Allergies No known active allergies Medications sertraline [...] Noted Date Diagnosed Date Drug withdrawal delirium ([facility] 11/24 NSTEMI (non-ST elevated myoc ardial infarction) ([facility]) 11/23/2018 Immunizations Immunization Administration Dates Next Due [...] uit: No; Counseling Given: No Comments:PCP to college and career counselor Alcohol Use Standard Drinks/Week Comments No [...] Sex Assigned at Male 04/21/2021 3:41 PM AGRICULTURAL RESEARCH TECHNICIAN Legal Sex Male 4:59 PM CDT Gender Identity Male 04/21/2021 3:41 PM AGRICULTURAL RESEARCH TECHNICIAN Sexual Orientation Straight 04/21/2021 3: 41 PM AGRICULTURAL RESEARCH TECHNICIAN Last Filed Vital Signs Vital Sign Reading [...] Vaccine (2023-2 5 season) 2023 PHQ-2 (Physician [place]) 04/19/2024 07/07/2023 DTaP, Tdap and Td Vaccines [...] 127 <200 MG/DL 11/24/2018 6:00 AM T [facility] TRIGLYCERIDES 80 <150 MG/DL 11/24/2018 6:00 AM T [facility] HDL 20(L) >40.0 MG/DL 11/24/2018 6:00 AM T [facility] LDL (CALCULATED) 91 <100 MG/DL 11/24/2018 6:00 AM T [facility] NON HDL CHOLESTEROL 107 <130 MG/DL 11/24/2018 6:00 AM T [facility] Comment: NOTE: WHEN THE TRIGLYCERIDES ARE >200 mg/dL, NON HDL C IS A SECONDARY TARGET OF THERAPY, WITH A GOAL 30 mg/dL HIGHER THAN THE IDENTIFIED LDL C GOAL. CHOL/HDL RATIO 6.4(H) 0.0 - 4.5 11/24/2018 6:00 AM T [facility] VLDL CALCULATION 16 5 - 55 MG/DL 11/24/2018 6:00 AM [facility] LIPID INTERPRETATION 11/24/2018 6:00 AM T [facility] Comment: NIH CONCENSUS REPORT RECOMMENDATIONS: ADULT CHILD LOW RISK: CHOLESTEROL <200 <170 TRIGLYCERIDE <150 --- HDL >=60 --- LDL <100 <110 BORDERLINE: CHOLESTEROL 200-239 170-199 TRIGLYCERIDE 150-199 --- HDL 40-59 --- LDL 100-159 110-129 HIGH RISK: CHOLESTEROL >=240 >=200 TRIGLYCERIDE >=200 --- HDL <40 --- LDL >=160 >=130 11/24/2018 5:03 AM CDT Krissy Escamilla MD LABORATORY Final Re sult [facility] [address] [place] [address], from Last 3 Months or Most Recently Relevant to Health Maintenance Insurance AET[employer] Advance Directives * Full Code (Latest Code Status on File) Date Activated Date Inactivated Comments 11/23/2018 8:24 PM 11/26/2018 2:02 PM Care Teams Canvas Baster Jumpbasting Relationship Specialty Start Date End Date Jennifer Schulte MD [address] [address] PCP - General INTERNAL MEDICINE 10/04/18
--- OUTSIDE RECORDS SUMMARY | 2024-12-04 23:51 | XMS_ITS | Encounter Summary ---
Author Organization [facility] Address [address] [place] [address] Care Team Providers Care Party Plan Sales Agent Name Role Phone Jennifer Schulte MD Primary Care Provider [phone] Encounter Details Date Type Department Care Team (Late st Contact Info) Description 12/11/2010 Abstract [facility] Conversion Md, Generic Conversion, Social History Tobacco Use Types Packs/Day Years Used Date Smoking Tobacco: Never Assessed Sex and Gender Information Value Date Recorded Sex Assigned at Male 04/21/2021 3:41 PM ASTROPHYSICS TEACHER Legal Sex Male 4:59 PM CDT Gender Identity Male 04/21/2021 3:41 PM ASTROPHYSICS TEACHER Sexual Orientation Straight 04/21/2021 3: 41 PM ASTROPHYSICS TEACHER documented as of this encounter Plan of [...] documented as of this encounter Care Teams Party Plan Sales Agent Relationship Specialty Start Date End Date Jennifer Schulte MD [address] [phone] PCP - General INTERNAL MEDICINE 10/04/18 documented as of this encounter
--- OUTSIDE RECORDS SUMMARY | 2024-12-04 23:52 | XMS_ITS ---
Author Organization [facility] Address [address] [place] [address] Care Team Providers Care Masonry Inspector Name Role Phone Julia Murillo Primary Care Provider [phone] Brendan Prather [phone] REASON FOR VISIT New Patient Psych Eval Encounters Encounter Location Date Provider Diagnosis [address] [place] [address] 09/22/2024 Brendan Prather Plan Of Treatment No Information Progress Notes * Margarito VALDEZod RDOB: [birth year] (44 yo M)Acc No.[id number]:09/22/2024 UNLOCKED PROGRESS NOTE Patient: Israel SIMMS Provider: Jovan Prather APN :1980 A ge:44 Y S ex:Male Date:09/22/2024 Address:[address] [place] [phone] Pcp:Julia Murillo Subjective: * Chief Complaints: * 1 . New Patient Psych Eval. * Medical History: Objective: * Vitals: Assessment: Plan: * Treatment: * * Electronic signature of Brendan Prather on 12/04/2024 at 11:51 PM CDT Sign off status: Pending * Provider: Jovan Prather APN Date: 0 09/22/2024 Generated for Printi ng/Faxing/eTransmitting on: 0 12/04/2024 11:51 PM CDT
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
== END 2024-12-04 19:30 | disposition left against medical advice (07) ==
DX: G43.909 Migraine, unspecified, not intractable, without status migrainosus (principal)
CPT/HCPCS: 99199